=== PATIENT | female | born 1955 | race Caucasian/White ===

== ENCOUNTER 2017-12-02 11:39 | Outpatient (CLI) | END 2017-12-02 11:40 | disposition home or self-care (01) | LOC: LAB 11:39 | PROVIDERS: ATTEND Family Medicine | DX: R05 Cough (principal); R68.89 Other general symptoms and signs; J98.8 Other specified respiratory disorders | CPT/HCPCS: 87502 ==

== ENCOUNTER 2018-07-25 00:55 | Emergency (ER) ==
[2018-07-25 01:13] VITALS: BMI 19.2
[2018-07-25] MEDS ORDERED: TYLENOL PO STA (01:33)
[2018-07-25 03:06] VITALS: BP 115/60; TEMP 98.3
--- NOTE | 2018-07-25 03:17 | ED.PDOC ---
General ED Provider: Dr. ELINA SWANSON Chief Complaint: Fever Stated Complaint: Patient states that while she woke up and felt chilled. She decided to take crushed up aspirin which made her vomit. She was seen at Dr. Neff [facility] yesterday for palpiation but while at the clinic was asymptomatic. Time Seen by Physician: 03:15 Mode of Arrival: Walk-In Information Source: Patient Primary Care Provider: HANNAH VÁSQUEZ Nursing and Triage Documentation Reviewed and Agree: Yes Does patient meet sepsis criteria?: No System Inflammatory Response Syndrome: Temp 101F or Greater Sepsis Protocol: For patient's 13 years and over: Temp is 96.8 and below OR 101 and greater Pulse >90 BPM Resp >20/minute Acutely Altered Mental Status Are patient's symptoms suggestive of a new infection, such as: -Pneumonia -Skin, Soft Tissue -Endocarditis -UTI -Bone, Joint Infection -Implantable Device -Acute Abdominal Infection -Wound Infection -Meningitis -Blood Stream Catheter Infection -Unknown Miscellaneous Complaint Exam - Febrile Illness/Adult Complaint/Exam Onset/Duration: 1 day Symptoms Are: Still present Timing: Constant Initial Severity: Moderate Current Severity: Moderate Alleviating: Reports: None Associated Signs and Symptoms: Reports: Sore throat, Nausea (after taking crushed Aspirin ), Vomiting Related History: Reports: Similar episode Pseudomonas Risk Factors: Reports: None Serious Bacterial Infection Risk Factors: Reports: None Current Antibiotic Use: No Related Surgical History: None Differential Diagnoses: Bacteremia, Fever of Unknown Origin, GI Disease, Pneumonia, Sepsis, Other (UTI ) Review of Systems - Review Of Systems Constitutional: Reports: Chills, Fever Eyes: Reports: No symptoms Ears, Nose, Mouth, Throat: Reports: No symptoms Respiratory: Reports: No symptoms Cardiac: Reports: No symptoms GI: Reports: Nausea, Vomiting : Reports: No symptoms Musculoskeletal: Reports: No symptoms Skin: Reports: No symptoms Neurological: Reports: No symptoms Endocrine: Reports: No symptoms Hematologic/Lymphatic: Reports: No symptoms All Other Systems: Reviewed and Negative Past Medical History - Past Medical History Endocrine: Reports: None Cardiovascular: Reports: Hypertension, Other (Palpitations. 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 - Surgical History General Surgical History: Reports: Cholecystectomy - Family History Family History: Reports: Unknown - Social History Smoking Status: Never smoker Hx Substance Use: No Alcohol Screening: None - Immunizations Tetanus Shot up to Date: Yes Physical Exam - Physical Exam Appearance: Ill-appearing Ill-appearing: Mild Eyes: JEFRY, EOMI, Conjunctiva clear ENT: Ears normal, Nose normal, Oropharynx normal Neck: Supple Respiratory: Crackles (at the bases bilatearlly ) Cardiovascular: RRR, Pulses normal, No rub, No murmur GI/: Soft, Nontender, No masses, Bowel sounds normal, No Organomegaly Musculoskeletal: Normal strength, ROM intact, No edema, No calf tenderness Skin: Warm, Dry Neurological: Alert, Oriented Psychiatric: Anxious Interpretation - Radiology Interpretation Radiology Interpretation By: Radiologist Radiology Results: Positive (Bibasilar Atelectasis and or Pneumonia.) Exam Interpreted: CXR Re-Evaluation - Re-Evaluation Time of Re-Evaluation: 03:17 Status: Improved Vital Signs Stable: Yes (Temp 98.3) Critical Care Note - Critical Care Note Total Time (mins): 0 Course - Course Hematology/Chemistry: 07/25/18 02:05 07/25/18 02:05 Orders, Labs, Meds: Lab Review 07/25/18 07/25/18 07/25/18 02:05 02:05 02:40 WBC 12.04 H RBC 3.93 L Hgb 11.3 L Hct 34.7 L MCV 88.3 MCH 28.8 MCHC 32.6 RDW Coeff of Fred 12.7 Plt Count 273 Immature Gran % (Auto) 0.2 Neut % (Auto) 78.0 Lymph % (Auto) 8.8 L Imperial % (Auto) 10.9 H Eos % (Auto) 1.8 Baso % (Auto) 0.3 Immature Gran # (Auto) 0.0 Neut # (Auto) 9.4 H Lymph # (Auto) 1.1 Imperial # (Auto) 1.3 Eos # (Auto) 0.2 Baso # (Auto) 0.0 Sodium 137.8 Potassium 3.73 Chloride 100.2 Carbon Dioxide 30.0 Anion Gap 11.33 BUN 8.4 Creatinine 0.58 L Estimated GFR (MDRD) 105.00 BUN/Creatinine Ratio 14.48 Glucose 97.5 Calcium 9.61 Total Bilirubin 0.30 AST 22.1 ALT 14.9 Alkaline Phosphatase 63.6 Total Protein 7.44 Albumin 4.18 Globulin 3.26 Albumin/Globulin Ratio 1.28 Amylase 87.3 Lipase 95.3 Urine Color Yellow Urine Clarity Slightly Urine pH 7.5 Ur Specific Xenia 1.015 Urine Protein Trace Urine Glucose (UA) Negative Urine Ketones Negative Urine Blood Trace-intact Urine Nitrite Negative Urine Bilirubin Negative Urine Urobilinogen 0.2 Ur Leukocyte Esterase 3+ Urine Microscopic RBC 2-5 Urine Microscopic WBC 10-20 Ur Squamous Epith Cells 2-5 Amorphous Sediment 1+ Urine Bacteria 1+ Urine Mucus Trace Orders Category Date Time Status ED IV/MEDIPORT/POWERPORT .ONCE EMERGENCY 07/25/18 01:20 Active AMYLASE Stat LAB 07/25/18 02:05 Completed CBC W/ AUTO DIFF Stat LAB 07/25/18 02:05 Completed COMPREHENSIVE METABOLIC PANEL Stat LAB 07/25/18 02:05 Completed LIPASE Stat LAB 07/25/18 02:05 Completed URINALYSIS C & S IF INDICATED Stat LAB 07/25/18 02:40 Completed URINE CULTURE Stat LAB 07/25/18 02:40 Received 0.9 % Sodium Chloride [Saline Flush] MEDS 07/25/18 01:27 Discontinued 1 syr IVF PRN PRN Acetaminophen [Tylenol] MEDS 07/25/18 01:33 Discontinued 1,000 mg PO ONCE STA Levofloxacin/D5w [Levaquin] 100 ml MEDS 07/25/18 03:58 Discontinued IV .STK-MED Levofloxacin/D5w [Levaquin] 500 mg MEDS 07/25/18 03:49 Discontinued Premix 100 ml D5w 1 bag IV ONCE CHEST, 2 VIEWS PA & LAT Stat RADS 07/25/18 01:33 Completed Medications Discontinued Medications Generic Name Dose Route Start Last Admin Trade Name Freq PRN Reason Stop Dose Admin Acetaminophen 1,000 mg 07/25/18 01:33 07/25/18 01:45 Tylenol PO 07/25/18 01:34 1,000 mg ONCE STA Administration Levofloxacin/Dextrose 500 mg/ 100 mls @ 100 mls/hr 07/25/18 03:49 07/25/18 04 :03 Dextrose IV 07/25/18 04:48 100 mls/hr ONCE STA Administration Sodium Chloride 1 syr 07/25/18 01:27 Saline Flush IVF PRN PRN To flush IV Vital Signs: Temp Pulse Resp BP Pulse Ox 07/25/18 03:02 98.3 F 70 20 115/60 96 07/25/18 00:58 101.6 F H 86 20 148/79 H 97 Departure - Departure Time of Disposition: 05:00 Disposition: HOME SELF-CARE Discharge Problem: Pulmonary fibrosis UTI (urinary tract infection) Qualifiers: Urinary tract infection type: acute cystitis Hematuria presence: without hematuria Qualified Code(s): N30.00 - Acute cystitis without hematuria Instructions: Pulmonary Fibrosis (ED), Urinary Tract Infection in Older Adults (ED) Condition: Stable Pt referred to PMD for follow-up: Yes IPMP verified?: No Additional Instructions: Take antibiotics as prescribed Follow up with PCP in 3 days Prescriptions: Levofloxacin [Levaquin] 500 mg PO DAILY #7 tablet Allergies/Adverse Reactions: Allergies No Known Allergies Allergy (Unverified 07/25/18 01:14) Home Medications: Ambulatory Orders Mycophenolate Mofetil 1,500 mg PO DAILY 01/17/16 Calcium Carbonate/Vitamin D3 [Calcium 600 + Vit D 400 Tablet] 1 tab PO DAILY 04/06 Denosumab [Prolia] 60 mg SQ DIRECTED 07/25/18 Ipratropium/Albuterol Neb [Duoneb] 1 vial NEB RTQ4H PRN 07/25/18 Levofloxacin [Levaquin] 500 mg PO DAILY #7 tablet 07/25/18 Multivitamin 1 cap PO DAILY 07/25/18 Mycophenolate Mofetil [Cellcept] 1,000 mg PO QPM 07/25/18 Disposition Discussed With: Patient, Family
--- NOTE | 2018-07-25 03:47 | DI ---
EXAM: PA and lateral views of the chest. HISTORY: Fever and cough. Uriel: None. FINDINGS: The bones are unremarkable. The cardiac silhouette is enlarged. The pulmonary vasculature is within normal limits. The costophrenic angles are clear. There are emphysematous changes throug hout both lungs. There is bilateral interstitial fibrosis and scarring. There are calcified granulom as. There is bibasilar atelectasis and/or pneumonia. Impression: Bibasilar atelectasis and/or pneumonia. Bilateral interstitial fibrosis and scarring. Chronic obstructive pulmonary disease.
[2018-07-25] MEDS ORDERED: LEVAQUIN 500 MG in PREMIX 100 ML D5W 1 BAG IV STA (03:49)
[2018-07-25] MEDS ORDERED: LEVAQUIN 100 ML IV ONE (03:58)
== END 2018-07-25 05:05 | disposition home or self-care (01) ==
LOC: ED 00:55
DX: J84.10 Pulmonary fibrosis, unspecified (principal); N30.00 Acute cystitis without hematuria; J02.9 Acute pharyngitis, unspecified; R50.9 Fever, unspecified; J44.9 Chronic obstructive pulmonary disease, unspecified; I10 Essential (primary) hypertension
CPT/HCPCS: 36415; 80053; 81001; 82150; 83690; 85025; 87086; 96365; 99281; 99283

== ENCOUNTER 2018-08-05 09:12 | Outpatient (CLI) ==
--- NOTE | 2018-08-07 12:39 | ECHOCOLOR ---
Date of Exam: 08/05/18 Ordering Physician: DR. HANNAH VÁSQUEZ Reason for Echo: PULMONARY HYPERTENSION, PULMONARY FIBROSIS, SOB, PALPITATIONS M-Mode Normal Adult Results LV Dimensions Normal Adult Results AoV Opening excursions >1.6 >1.6 LVEDD-base- 3.5-5.8 4.2 Ao root dimensions 2.0-3.7 2.8 LVESD-base- 3.1-4.6 L. Atrium dimensions 1.9-3.8 2.6 Post. Wall thickness 0.8-1.1 1.2 IV septum (thickness) 0.7-1.2 1.2 Post. Wall excursion 0.72-1.3 NORMAL Septal motion NORMAL Systolic motion R. Ventricular cavity 1.5-2.0 NORMAL LVEF 60% 78% Paradoxical septal wall motion NORMAL 2-D: 2-D M Mode Echocardiogram was performed using apical four chamber and left parasternal long and short axis views. Mitral, tricuspid and aortic valves appear to be normal. Contractility of the left ventricle seems to be normal, so is the cavity size. Left atrial cavity size and aortic root appear to be normal. There is no pericardial effusion. There is no thrombus noted in the left ventricular or left aortic cavity. No mitral valve prolapse noted. DOPPLER WITH COLOR FLOW: Valvular flow indices--normal, mild tricuspid regurgitation, trivial to mild pulmonary regurgitation and mitral regurgitation. Inferior vena cava collapses well. M-MODE: MV: NORMAL AV: NORMAL TV: NORMAL PV: CHAMBER SIZE: NORMAL WALL MOTION: NORMAL PERICARDIUM: NORMAL INTERPRETATION: 1. LEFT VENTRICULAR HYPERTROPHY--BORDERLINE 2. NORMAL LEFT VENTRICULAR CONTRACTILITY 3. TRIVIAL TO MILD PULMONARY REGURGITATION AND MITRAL REGURGITATION 4. MILD TRICUSPID REGURGITATION 5. NO PARADOXICAL SEPTAL WALL--NORMAL RIGHT VENTRICLE SIZE MTDD
== END 2018-08-05 09:13 | disposition home or self-care (01) ==
LOC: CAR 09:12
PROVIDERS: ATTEND Family Medicine
DX: I27.20 Pulmonary hypertension, unspecified (principal); J84.10 Pulmonary fibrosis, unspecified; R06.02 Shortness of breath; R00.2 Palpitations

== ENCOUNTER 2018-12-09 08:24 | Outpatient (CLI) ==
--- NOTE | 2018-12-10 14:19 | DEXA ---
EXAM: Bone densitometry. History: Osteoporosis. Findings: Evaluation of the lumbar spine reveals a total bone mineral density of 0.980 grams per centimeter squ ared with T-score of negative 1.7. Evaluation of the left hip reveals a total bone mineral density of 0.902 grams per centimeter squared with T-score of negative 0.8. Evaluation of the right hip reveals a total bone mineral density of 0.823 grams per centimeter square d with T-score of negative 1.5. FRAX: 10-year probability of major osteoporotic fracture is 11% and 1.2% for hip fracture. Impression: 1. Osteopenia of the lumbar spine and right hip. 2. Normal bone mineral density of the left hip
== END 2018-12-09 08:25 | disposition home or self-care (01) ==
LOC: RAD 08:24
PROVIDERS: ATTEND Family Medicine
DX: M81.0 Age-related osteoporosis without current pathological fracture (principal); Z79.52 Long term (current) use of systemic steroids; N95.1 Menopausal and female climacteric states

== ENCOUNTER 2019-03-30 20:16 | Emergency (ER) | payer OTHER ==
[2019-03-30 20:21] VITALS: BP 147/82; TEMP 99.6; BMI 18.8
--- NOTE | 2019-03-30 20:38 | ED.PDOC ---
General ED Provider: Dr. ELINA SWANSON Chief Complaint: Foot Pain/Injury Stated Complaint: Patient is a 63 year old female who states that she accidentally dropped a lager Noam jar onto her left mid foot. Happened 5 and Half ahours ago. Put some ice and took Two Ibuprofen. Has Pain with weight bearing. Time Seen by Physician: 20:38 Mode of Arrival: Wheelchair Information Source: Patient Primary Care Provider: HANNAH VÁSQUEZ Nursing and Triage Documentation Reviewed and Agree: Yes Does patient meet sepsis criteria?: No System Inflammatory Response Syndrome: Not Applicable Sepsis Protocol: For patient's 13 years and over: Temp is 96.8 and below OR 101 and greater Pulse >90 BPM Resp >20/minute Acutely Altered Mental Status Are patient's symptoms suggestive of a new infection, such as: -Pneumonia -Skin, Soft Tissue -Endocarditis -UTI -Bone, Joint Infection -Implantable Device -Acute Abdominal Infection -Wound Infection -Meningitis -Blood Stream Catheter Infection -Unknown Musculoskeletal Complaint Exam - Ankle/Foot Complaint/Exam Location of Injury: Reports: Left, Foot Mechanism of Injury: Reports: Trauma Onset/Duration: 5.5 hours Symptoms Are: Reports: Still present Onset of Pain: Reports: Immediate Initial Severity: Severe Current Severity: Moderate Location: Reports: Discrete (mid foot ) Character: Reports: Throbbing Alleviating: Reports: Rest Aggravating: Reports: Movement, Weight bearing, Prolonged standing Able to Bear Weight: Yes Associated Signs and Symptoms: Reports: Swelling Related History: Denies: Similar episode, Occupational injury Gout Risk Factors: Reports: None Related Surgical History: Reports: None Lower Extremity Findings: Present: Swelling, Tenderness Tenderness: Present: Midfoot Limited Range of Motion: Absent: Inversion, Eversion, Dorsiflexion, Plantarflexion Ankle/Foot Picture: 1 - swelling and Tendeness to palpation. Differential Diagnosis: Contusion, Closed Fracture, Sprain, Strain Review of Systems - Review Of Systems Constitutional: Reports: No symptoms Ears, Nose, Mouth, Throat: Reports: No symptoms Respiratory: Reports: No symptoms Cardiac: Reports: No symptoms GI: Reports: No symptoms Musculoskeletal: Reports: Joint pain Neurological: Reports: Anxiety All Other Systems: Reviewed and Negative Past Medical History - Past Medical History Endocrine: Reports: None Cardiovascular: Reports: Hypertension, Other (Palpitations. 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 - Surgical History General Surgical History: Reports: Cholecystectomy - Family History Family History: Reports: Unknown - Social History Smoking Status: Never smoker Hx Substance Use: No Alcohol Screening: None Physical Exam - Physical Exam Appearance: Thin Pain Distress: Moderate Neck: Supple Respiratory: Airway patent, Breath sounds equal, Breath sounds diminished, Respirations nonlabored Cardiovascular: RRR, Pulses normal, No rub, No murmur Musculoskeletal: ROM intact Neurological: Alert, Oriented Psychiatric: Anxious Interpretation - Radiology Interpretation Radiology Interpretation By: Radiologist Radiology Results: Negative Exam Interpreted: Other (Left foot x ray ) Critical Care Note - Critical Care Note Total Time (mins): 0 Course - Course Orders, Labs, Meds: Orders Category Date Time Status TARUN [ED TARUN WRAP] .ONCE EMERGENCY 03/30/19 21:24 Active FOOT, LEFT 3 VIEWS Stat RADS 03/30/19 20:33 Completed Vital Signs: Temp Pulse Resp BP Pulse Ox 03/30/19 20:16 99.6 F 80 20 147/82 H 96 Departure - Departure Time of Disposition: 21:24 Disposition: HOME SELF-CARE Discharge Problem: Injury of foot Contusion Qualifiers: Encounter type: initial encounter Contusion area: foot Laterality: left Qualified Code(s): S90.32XA - Contusion of left foot, initial encounter Instructions: Foot Sprain (ED), Crush Injury (ED) Condition: Good Pt referred to PMD for follow-up: Yes IPMP verified?: No Additional Instructions: Keep elevated Take Tylenol as needed for pain Ambulate as tolerated, use crutches if needed Follow up with PCP in 5 days if not better. Allergies/Adverse Reactions: Allergies denosumab [From Prolia] Adverse Reaction (Verified 03/30/19 20:23) Home Medications: Ambulatory Orders Mycophenolate Mofetil 1,500 mg PO DAILY 01/17/16 Calcium Carbonate/Vitamin D3 [Calcium 600 + Vit D 400 Tablet] 1 tab PO DAILY 04/06 Ipratropium/Albuterol Neb [Duoneb] 1 vial NEB RTQ4H PRN 07/25/18 Multivitamin 1 cap PO DAILY 07/25/18 Mycophenolate Mofetil [Cellcept] 1,500 mg PO QPM 07/25/18 Ibandronate Sodium [Boniva] 150 mg PO MONTHLY 03/30/19 Prednisone 5 mg PO DAILY 03/30/19 Disposition Discussed With: Patient, Family
--- NOTE | 2019-03-30 21:03 | DI ---
Exam: Three views of the left foot. Comparison: None available. Reason for exam: Blunt trauma. FINDINGS: No acute fracture or malalignment. There is moderate degenerative disease seen throughout the midfoot with joint space narrowing and osteophyte formation. Impression: No acute fracture or malalignment in the left foot with mild to moderate degenerative disease
== END 2019-03-30 21:33 | disposition home or self-care (01) ==
LOC: ED 20:16
DX: S90.32XA Contusion of left foot, initial encounter (principal); W20.8XXA Other cause of strike by thrown, projected or falling object, initial encounter
CPT/HCPCS: 99282

== ENCOUNTER 2019-04-07 09:49 | Outpatient (CLI) | END 2019-04-07 09:50 | disposition home or self-care (01) | LOC: RAD 09:49 | PROVIDERS: ATTEND Family Medicine | DX: Z12.31 Encounter for screening mammogram for malignant neoplasm of breast (principal) ==